=== PATIENT | female | born 1955 | race Caucasian/White ===

== ENCOUNTER 2017-05-10 09:28 | Day surgery (SDC) | payer MEDICARE ==
[2017-05-07 14:30] VITALS: BMI 26.1
[~2017-05-10 09:28] MED LIST: DEXAMETHASONE SOD PHOSPHATE 10 MG/ML 1 ML VIAL IV ONE; HEPARIN SODIUM,PORCINE 5,000 UNIT/ML 1 ML VIAL SQ ONE; HYDROmorphone 1 MG/ML 1 ML SYRINGE IVP PRN; LACTATED RINGERS 1,000 ML IV SCH; LIDOCAINE 1% 20 ML VIAL (10MG/ML) FOR IV START INTRADERMA PRN; ONDANSETRON 4 MG/2 ML VIAL IVP ONE; Pre Op ABX Message 1 EACH MISC MISCELLANE ONE
[2017-05-10] MEDS ORDERED: SCOPOLAMINE 1.5MG/72HR PATCH TRANSDERM ONE (10:15)
[2017-05-10] MEDS ORDERED: MIDAZOLAM 2 MG/2 ML VIAL IV ONE (10:35)
[2017-05-10] MEDS ORDERED: LIDOCAINE 1%-EPI 1:100,000 20 ML VIAL SQ ONE ×2 (10:40→11:37)
--- NOTE | 2017-05-10 10:58 | P.GSHP ---
History of Present Illness H&P Date: 05/10/17 Chief Complaint: Left thigh lipoma This a 8-year-old female who presents today for excision of left thigh lipoma. Patient has had a tender mass in her left thigh. The mass is normal the last 3 months. Past Medical History Past Medical History: Blood Disorder, Fibromyalgia, Pulmonary Embolus (PE) Additional Past Medical History / Comment(s): "Clotting disorder"; PE 2013 History of Any Multi-Drug Resistant Organisms: None Reported Past Surgical History: Back Surgery, Hysterectomy Additional Past Surgical History / Comment(s): Bunions Past Anesthesia/Blood Transfusion Reactions: Motion Sickness Smoking Status: Former smoker - Past Family History Mother Family Medical History: No Reported History Medications and Allergies Home Medications Medication Instructions Recorded Confirmed Type DULoxetine HCL [Cymbalta] 60 mg PO HS 05/07/17 05/10/17 History HYDROcodone/APAP 5-325MG [[place] 1 tab PO Q6HR PRN 05/07/17 05/10/17 History 5-325] LORazepam [Ativan] 2 mg PO HS 05/07/17 05/10/17 History Rivaroxaban [Xarelto] 20 mg PO DAILY 05/07/17 05/10/17 History Topiramate [Topamax] 50 mg PO HS 05/07/17 05/10/17 History Allergies Allergy/AdvReac Type Severity Reaction Status Date / Time No Known Allergies Allergy Verified 05/10/17 09:56 Surgical - Exam Vital Signs Temp Pulse Resp BP Pulse Ox 98.2 F 88 18 112/75 96 05/10/17 09:55 05/10/17 09:55 05/10/17 09:55 05/10/17 09:55 05/10/17 09:55 - General well developed, no distress - Eyes PERRL - ENT normal pinna - Neck no masses - Respiratory normal expansion - Cardiovascular Rhythm: regular - Abdomen Abdomen: soft, non tender - Neurologic 3 cm left thigh lipoma. The lipomas on the anterior medial aspect of left thigh just 5 cm below the left groin. The mass is firm and nontender. Assessment and Plan Plan: Left thigh lipoma. We'll perform excision.
[2017-05-10] MEDS ORDERED: KETOROLAC 30 MG/ML 1 ML VIAL ONE (11:09)
[2017-05-10] MEDS ORDERED: fentaNYL (PF) 50 MCG/ML 2 ML AMP ONE (11:09)
[2017-05-10] MEDS ORDERED: LIDOCAINE 1% INJ 10MG/ML (20 ML MDV) ONE (11:09)
[2017-05-10] MEDS ORDERED: PROPOFOL 10 MG/ML 20 ML VIAL IV ONE (11:09)
--- NOTE | 2017-05-10 11:45 | P.OP ---
Date of Procedure: 05/10/17 Preoperative Diagnosis: Left thigh lipoma Postoperative Diagnosis: Left thigh lipoma Procedure(s) Performed: Excision of left thigh lipoma Implants: Anesthesia: LOLLYA Surgeon: Cade Martin Estimated Blood Loss (ml): 5 Pathology: other (Lipoma) Condition: stable Disposition: PACU Indications for Procedure: Operative Findings: Description of Procedure: The patient's placed on the operating table in the supine position. She received IV sedation. Her left thigh was prepped and draped usual fashion. The skin was anesthetized 1% local Xylocaine. The skin was incised. Then using blunt and sharp dissection with cautery lipoma was excised. The lipoma measured prostate 3 cm diameter. The specimens of pathology. The skin was closed interrupted 3-0 Monocryl suture. Dermabond was applied. Patient top procedure well and was sent to recovery in stable condition.
[2017-05-10 11:56] VITALS: TEMP 97.3
[2017-05-10 12:17] VITALS: RESP 16
[2017-05-10 12:24] VITALS: PULSE 80
[2017-05-10] MEDS ORDERED: LACTATED RINGERS 1,000 ML IV ONE (12:24)
[2017-05-10 12:59] VITALS: BP 100/64
== END 2017-05-10 13:24 | disposition home or self-care (01) ==
LOC: OR 09:28
PROVIDERS: ATTEND Surgery
DX: D17.24 Benign lipomatous neoplasm of skin and subcutaneous tissue of left leg (principal); D75.9 Disease of blood and blood-forming organs, unspecified; M79.7 Fibromyalgia; F41.9 Anxiety disorder, unspecified; F31.9 Bipolar disorder, unspecified; Z86.711 Personal history of pulmonary embolism; Z79.01 Long term (current) use of anticoagulants; Z79.899 Other long term (current) drug therapy; Z87.891 Personal history of nicotine dependence
CPT/HCPCS: 88304; 27337; J2250; J1644; J1100; J2001; J3010; J1885; J1170; J2704

== ENCOUNTER 2017-05-23 08:28 | Day surgery (SDC) | payer MEDICARE ==
[2017-05-17 15:34] VITALS: BMI 26.2
[~2017-05-23 08:28] MED LIST changes: -DEXAMETHASONE SOD PHOSPHATE 10 MG/ML 1 ML VIAL IV ONE; -HEPARIN SODIUM,PORCINE 5,000 UNIT/ML 1 ML VIAL SQ ONE; -HYDROmorphone 1 MG/ML 1 ML SYRINGE IVP PRN; -ONDANSETRON 4 MG/2 ML VIAL IVP ONE; -Pre Op ABX Message 1 EACH MISC MISCELLANE ONE
[2017-05-23 09:19] VITALS: TEMP 98.9
[2017-05-23] MEDS ORDERED: LIDOCAINE 1% INJ 10MG/ML (20 ML MDV) ONE (10:35)
[2017-05-23] MEDS ORDERED: PROPOFOL 10 MG/ML 20 ML VIAL IV ONE (10:35)
--- NOTE | 2017-05-23 10:58 | P.GSHP ---
History of Present Illness H&P Date: 05/23/17 Chief Complaint: Screening colonoscopy This is a 62-year-old female for from Dr. Calderon. Patient presents today for screening colonoscopy. She denies a significant GI complaints. Her last colonoscopy over 10 years ago. Past Medical History Past Medical History: Osteoarthritis (OA), Pulmonary Embolus (PE) Additional Past Medical History / Comment(s): FACTOR 5 - CLOTTING DISORDER ( [place]ID[place] LEVEL) History of Any Multi-Drug Resistant Organisms: None Reported Past Surgical History: Back Surgery, Hysterectomy, Orthopedic Surgery Additional Past Surgical History / Comment(s): LUMBAR DISC FUSION L4,5,AND 6, BUNIONECTOMY Past Anesthesia/Blood Transfusion Reactions: Motion Sickness Smoking Status: Former smoker - Past Family History Mother Family Medical History: No Reported History Medications and Allergies Home Medications Medication Instructions Recorded Confirmed Type DULoxetine HCL [Cymbalta] 60 mg PO HS 05/07/17 05/17/17 History HYDROcodone/APAP 5-325MG [[place] 1 tab PO Q6HR PRN 05/07/17 05/23/17 History 5-325] LORazepam [Ativan] 1 mg PO BID 05/07/17 05/17/17 History Rivaroxaban [Xarelto] 20 mg PO DAILY 05/07/17 05/17/17 History Topiramate [Topamax] 50 mg PO HS 05/07/17 05/17/17 History Multivitamins, Thera [Multivitamin 1 tab PO DAILY 05/17/17 05/17/17 History (formulary)] Allergies Allergy/AdvReac Type Severity Reaction Status Date / Time No Known Allergies Allergy Verified 05/17/17 15:14 Surgical - Exam Vital Signs Temp Pulse Resp BP Pulse Ox 98.9 F 71 16 105/71 96 05/23/17 09:17 05/23/17 09:17 05/23/17 09:17 05/23/17 09:17 05/23/17 09:17 - General well developed, no distress - Eyes PERRL - ENT normal pinna - Neck no masses - Respiratory normal expansion - Cardiovascular Rhythm: regular - Abdomen Abdomen: soft, non tender Assessment and Plan Plan: We'll perform screening colonoscopy
[2017-05-23] MEDS ORDERED: IV FLUID CONTINUATION 1,000 ML IV ONE (11:06)
--- NOTE | 2017-05-23 11:14 | P.OP ---
Date of Procedure: 05/23/17 Preoperative Diagnosis: Screening colonoscopy Postoperative Diagnosis: Diverticulosis Procedure(s) Performed: Colonoscopy Implants: Anesthesia: MAC Surgeon: Cade Martin Pathology: none sent Condition: stable Disposition: PACU Indications for Procedure: Operative Findings: Description of Procedure: The patient's placed on the endoscopy table in the lateral position. She received IV sedation. Digital rectal exam was performed which revealed no abnormalities. The flexible colonoscope was then placed patient anus passed throughout the entire colon. The ileocecal valve visualized. The cecum, ascending and transverse colon appeared normal. The descending; was moderate diverticular changes. In in the sigmoid colon there is extensive diverticular changes. Scope was then brought back the rectum and this appeared normal. Scope was withdrawn for patient.
[2017-05-23 11:21] VITALS: BP 111/57; PULSE 65; RESP 22
== END 2017-05-23 12:01 | disposition home or self-care (01) ==
LOC: ORWHC2ENDO 08:28
PROVIDERS: ATTEND Surgery
DX: Z12.11 Encounter for screening for malignant neoplasm of colon (principal); K57.30 Diverticulosis of large intestine without perforation or abscess without bleeding; M19.90 Unspecified osteoarthritis, unspecified site; Z86.711 Personal history of pulmonary embolism; M79.7 Fibromyalgia; F39 Unspecified mood [affective] disorder; D68.51 Activated protein C resistance; Z79.01 Long term (current) use of anticoagulants; Z79.899 Other long term (current) drug therapy; Z87.891 Personal history of nicotine dependence
CPT/HCPCS: J2001; J2704; G0121